=== PATIENT | male | born 1970 | race Two or more races ===

== ENCOUNTER 2018-09-17 07:08 | Day surgery (SDC) | payer OTHER ==
[2018-09-17] MEDS ORDERED: PERCOCET 5-3251 EACH PO (13:19)
[2018-09-17] MEDS ORDERED: COLACE100 MG PO (13:19)
== END 2018-09-17 17:10 | disposition home or self-care (01) ==
LOC: CIR.AMB 07:08
DX: K64.8 Other hemorrhoids (principal)